=== PATIENT | male | born 1990 | race Caucasian/White ===

== ENCOUNTER 2017-04-11 21:48 | Emergency (ER) | payer MEDICAID, OTHER ==
[~2017-04-11] VITALS: Ht 177.8 cm; Wt 84.9 kg
[2017-04-11] MEDS ORDERED: KETOROLAC 30 MG/1 ML ONE (22:59)
[2017-04-11] MEDS ORDERED: ONDANSETRON ODT 4 MG ONE (22:59)
[2017-04-11] MEDS ORDERED: KETOROLAC 30 MG/1 ML IM ONE (23:00)
[2017-04-11] MEDS ORDERED: ONDANSETRON ODT 4 MG PO ONE (23:00)
[2017-04-11 23:16] VITALS: BP 104/53
== END 2017-04-11 23:30 | disposition home or self-care (01) ==
LOC: ED 23:24
DX: S39.012A Strain of muscle, fascia and tendon of lower back, initial encounter (principal); R19.7 Diarrhea, unspecified; F12.10 Cannabis abuse, uncomplicated; X58.XXXA Exposure to other specified factors, initial encounter; Y93.89 Activity, other specified; Y99.8 Other external cause status; Y92.89 Other specified places as the place of occurrence of the external cause
CPT/HCPCS: 96372; 99283; J1885; Q0162

== ENCOUNTER 2017-05-05 19:06 | Emergency (ER) | payer SELFPAY ==
[~2017-05-05] VITALS: Ht 180.3 cm; Wt 83.9 kg
[2017-05-05 19:14] VITALS: BP 121/66
== END 2017-05-05 20:02 | disposition home or self-care (01) ==
LOC: ED 20:00
DX: H69.83 Other specified disorders of Eustachian tube, bilateral (principal); F17.200 Nicotine dependence, unspecified, uncomplicated; Z88.6 Allergy status to analgesic agent; Z88.5 Allergy status to narcotic agent
CPT/HCPCS: 99283